=== PATIENT | female | born 1975 | race Hispanic/Latino ===

== ENCOUNTER 2017-12-21 15:51 | Emergency (ER) | payer OTHER ==
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
[2017-12-21 18:54] VITALS: BP 157/114; PULSE 88; RESP 16; TEMP 98.8
[2017-12-21 18:59] LABS: SQUAMOUS EPITHIAL 4 /hpf (0-5); URINE AMORPHOUS SEDIMENT FEW /ul (<OCC); URINE BILIRUBIN NEGATIVE (NEGATIVE); URINE BLOOD NEGATIVE (NEGATIVE); URINE CLARITY Hazy (Clear); URINE GLUCOSE (UA) NORMAL (Normal); URINE LEUKOCYTE ESTERASE NEG Leu/uL (Negative); URINE PROTEIN NEGATIVE (NEGATIVE)
[2017-12-21 19:00] LABS: URINE COLOR YELLOW (YELLOW)
[2017-12-21 19:33] VITALS: O2SAT 99
== END 2017-12-21 18:54 | disposition home or self-care (01) ==
LOC: C.ER 15:51
DX: T76.21XA Adult sexual abuse, suspected, initial encounter (principal)